=== PATIENT | female | born 1945 | race Two or more races ===

== ENCOUNTER 2024-12-29 15:55 | Inpatient (IN) | payer OTHER ==
[~2024-12-29] VITALS: Ht 157.5 cm; Wt 55.0 kg
[~2024-12-29 15:55] MED LIST: AMLO1TAB23 PO; ATOR40TA52 PO; CLOP75TA70 PO; HYDR25TA5 PO; ISOS1TAB28 PO; LOSA-534 PO; METO1TAB77 PO; OXYB5TAB14 PO; POTA-211 PO; VALS1TAB58 PO
--- NOTE | 2024-12-29 16:18 | ED.PDOC ---
History of Present Illness HPI Comments 79F BIBA w/ prior Hx of AFIB, CAD, SVT, SC, CABG and 2 Coronary stents which all may be associated to the c/c of SVT. EMS report being called by the pt's family after the pt's daughter witnessed the pt's eyes rolling back, as well as having ABD pain and N/V. EMS informed us that the pt was recently shocked and admitted in the ER 2 weeks ago. Family informed the EMS that the pt was trying to use the bathroom then after went to go lay down and that is when the daughter saw the pt rolling her eyes back. PMHx of CVA and High Lipids. Denies chills, fever, /D, SOB, CP or other associated symptom's, modifiers, or recent injuries or sick contact at this time. Chief Complaint: Palpitations Time Seen by MD: 15:55 Primary Care Provider: PAMELA Solis Notes: Nurses Notes, Medications, Allergies Allergies: Coded Allergies: Lisinopril (Verified Allergy, Unknown, 12/29/24) Information Source: Emergency Med Personnel Mode of Arrival: EMS Severity: Moderate Timing: Minutes Duration: Since onset, Minutes Prehospital treatment: None Past Medical History PAST MEDICAL HISTORY: AFIB, CAD, CVA, High Lipids, SC Past Medical History (Other): SVT Surgical History: CABG Surgical History (Other): 2 coronary Stent [employer]ICE PRESIDENT History: No Pertinent E[employer]MENT SERVICES [employer]ICE PRESIDENT History Family History Family History: Reviewed,noncontributory to illness, Unknown Social History Smoker: Non-Smoker Alcohol: Denies ETOH Use Drugs: Denies Drug Use Lives In: Home Constitutional: denies: chills, diaphoresis, fatigue, fever, malaise, sweats, weakness, others EENTM: denies: blurred vision, double vision, ear bleeding, ear discharge, ear drainage, ear pain, ear ringing, eye pain, eye redness, hearing loss, mouth pain, mouth swelling, nasal discharge, nose bleeding, nose congestion, nose pain, photophobia, tearing, throat pain, throat swelling, voice changes, others Respiratory: denies: cough, hemoptysis, orthopnea, SOB at rest, shortness of breath, SOB with excertion, stridor, wheezing, others Cardiovascular: denies: chest pain, dizzy spells, diaphoresis, Dyspnea on exertion, edema, irregular heart beat, left arm pain, lightheadedness, palpitations, PND, syncope, others Gastrointestinal: reports: abdominal pain, nausea, vomiting; denies: abdomen distended, blood streaked bowels, constipated, diarrhea, dysphagia, difficulty swallowing, hematemesis, melena, poor appetite, poor fluid intake, rectal bleeding, rectal pain, others Genitourinary: denies: abnormal vagina bleeding, burning, dyspareunia, dysuria, flank pain, frequency, hematuria, incontinence, pain, , vagina disc harge, urgency, others Neurological: denies: dizziness, fainting, headache, left sided numbness, left sided weakness, numbness, paresthesia, pre-existing deficit, right sided numbness, right sided weakness, seizure, speech problems, tingling, tremors, weakness, others Musculoskeletal: denies: back pain, gout, joint pain, joint swelling, muscle pain, muscle stiffness, neck pain, others Integumetry: denies: bruises, change in color, change in hair/nails, dryness, laceration, lesions, lumps, rash, wounds, others Allergic/Immunocompromised: denies: Difficulty Healing, Frequent Infections, Hives, Itching, others Hematologic/Lymphatic: denies: anemia, blood clots, easy bleeding, easy bruising, swollen glands, others Endocrine: denies: excessive hunger, excessive sweating, excessive thirst, excessive urination, flushing, intolerance to cold, intolerance to heat, unexplained weight gain, unexplained weight loss, others Psychiatric: denies: anxiety, bipolar disorder, depression, hopeless, panic disorder, schizophrenia, sleepless, suicidal, others All Other Systems: Reviewed and Negative Physical Exam General Appearance: No Apparent Distress, Normal HEENT: Normal ENT Inspection, Pharynx Normal, TMs Normal Neck: Full Range of Motion, Non-Tender, Normal, Normal Inspection Respiratory: Chest Non-Tender, Lungs Clear, No Accessory Muscle Use, No Respiratory Distress, Normal Breath Sounds Cardiovascular: No Edema, No JVD, No Murmur, No Gallop, Normal Peripheral Pulses, Regular Rate/Rhythm Breast Exam: Deferred Gastrointestinal: Diffuse, No Organomegaly, No Pulsatile Mass, Normal Bowel Sounds, Soft, Tenderness Genitalia: Deferred Pelvic: Deferred Rectal: Deferred Extremities: No calf tenderness, Normal capillary refill, Normal inspection, Normal range of motion, Non-tender, No pedal edema Musculoskeletal : Apperance: Normal Neurologic: Alert, plastic finisher II-XII nml as Tested, No Motor Deficits, Normal Affect, Normal Mood, No Sensory Deficits Cerebellar Function: Normal Reflexes: Normal Skin: Dry, Normal Color, Warm Lymphatic: No Adenopathy Was a procedure done? Was a procedure done?: No Differential Dx Considerations may include: svt, afib with RVR, acs, colitis, perforated viscus, sbo, ischemic bowel, cystitis, constipation, ileus X-Ray, Labs, Meds, VS Vital Signs Date Time Temp Pulse Resp B/P (MAP) Pulse Ox O2 Delivery O2 Flow Rate FiO2 12/29/24 17:52 72 20 149/75 (99) 97 12/29/24 16:47 88 18 98 Room Air* 0 21 12/29/24 16:41 74 12/29/24 16:13 71 12/29/24 16:03 74 12/29/24 16:03 98.3 74 20 166/90 (115) 96 98.3 12/29/24 16:03 98.3 74 20 166/90 (115) 96 12/29/24 16:02 75 Lab Test 12/29/24 18:09 12/29/24 16:23 Range/Units Troponin I High Sensitivity 118 *H 40 *H </=34 ng/L White Blood Count 11.3 H 4.4-10.8 10^3/uL Red Blood Count 4.82 4.0-5.20 10^6/uL Hemoglobin 14.4 12.2-16.2 g/dL Hematocrit 43.4 36.0-46.0 % Mean Corpuscular Volume 90.1 80.0-100.0 fL Mean Corpuscular Hemoglobin 29.9 28.0-32.0 pg Mean Corpuscular Hemoglobin Concent 33.2 32.0-36.0 g/dL Red Cell Distribution Width 14.3 11.8-14.3 % Platelet Count 196 140-450 10^3/uL Mean Platelet Volume 8.9 6.9-10.8 fL Neutrophils (%) (Auto) 72.0 37.0-80.0 % Lymphocytes (%) (Auto) 21.1 10.0-50.0 % Monocytes (%) (Auto) 5.8 0.0-12.0 % Eosinophils (%) (Auto) 0.6 0.0-7.0 % Basophils (%) (Auto) 0.5 0.0-2.0 % Neutrophils # (Auto) 8.1 1.6-8.6 10 ^3/uL Lymphocytes # (Auto) 2.4 0.4-5.4 10 ^3/uL Monocytes # (Auto) 0.7 0-1.3 10 ^3/uL Eosinophils # (Auto) 0.1 0-0.8 10 ^3/uL Basophils # (Auto) 0.1 0-0.2 10 ^3/uL Nucleated Red Blood Cells 0.0 % Sodium Level 140 136-145 mmol/L Potassium Level 3.2 L 3.5-5.1 mmol/L Chloride Level 107 98-107 mmol/L Carbon Dioxide Level 24 20-31 mmol/L Anion Gap 9 5-15 Blood Urea Nitrogen 19 9-23 mg/dL Creatinine 0.96 0.550-1.02 mg/dL Glomerular Filtration Rate Calc 61 >90 mL/min BUN/Creatinine Ratio 19.8 10.0-20.0 Serum Glucose 171 H 74-106 mg/dL Calcium Level 9.8 8.7-10.4 mg/dL Magnesium Level 1.9 1.6-2.6 mg/dL Total Bilirubin 0.3 0.2-1.0 mg/dL Aspartate Amino Transferase (AST) 25 13-40 U/L Alanine Aminotransferase (ALT) 24 7-40 U/L Alkaline Phosphatase 95 46-116 U/L Total Protein 7.1 5.7-8.2 g/dL Albumin 4.5 3.2-4.8 g/dL Thyroid Stimulating Hormone (TSH) 3.64 0.55-4.78 uIU/mL Free Thyroxine (T4) Calculated Pending Current Medications Medications (Trade) Dose Ordered Sig/Waldemar Route Start Time Stop Time Status Last Admin Aspirin 325 mg ONCE ONCE PO 12/29/24 16:15 12/29/24 16:16 DC 12/29/24 16:24 Potassium Chloride (Klor-Con Tablet) 40 meq ONCE ONCE PO 12/29/24 17:45 12/29/24 17:46 DC 12/29/24 17:49 Lactulose 15 ml ONCE ONCE PO 12/29/24 18:45 12/29/24 18:49 DC 12/29/24 18:57 Ceftriaxone Sodium 50 ml @ 100 mls/hr ONCE ONCE IV 12/29/24 18:45 12/29/24 19:14 12/29/24 18:57 Metronidazole 100 ml @ 100 mls/hr ONCE ONCE IV 12/29/24 18:45 12/29/24 19:44 12/29/24 18:56 Time of 1ST Reevaluation: 16:25 Reevaluation 1ST: Unchanged Time of 2ND Reevaluation: 18:48 Reevaluation 2ND: Improved Patient Education/Counseling: Diagnosis, Treatment, Prognosis, Need For Follow Up Family Education/Counseling: Diagnosis, Treatment, Prognosis, Need For Follow Up Additional Information - I reviewed the following notes from patient's past medical encounters:11/27/23 - The following tests were ordered, and results were reviewed by me: EKG, XY, ct and LABS - Additional information was gathered from interviewing the following independent Historian: EMT - I reviewed and agreed with the following test results read by other provider: X-ray, ct abdomen/pelvis - I discussed treatments and results with medical personnel and: (consultants, family) pt was attempting to have a BM from severe constipation when she suffered a near syncopal event with svt. pt was shocked and converted. the workup shows she has elevated troponin, which may be related to the tachyarrhythmia and shock. however, her troponin increased significantly on the repeat draw, which makes AMI a real concern. in addition, pt also has stercoral colitis . pt will need to be admitted for further treatments. I consulted Dr Dominguez, [facility], who agrees to have pt admitted at our facility for the above conditions #[id number] Departure 1 Departure Time of Disposition: 18:53 Impression: Primary Impression: Near syncope Additional Impressions: SVT (supraventricular tachycardia) Abdominal pain Qualified Codes: R10.84 - Generalized abdominal pain Stercoral colitis Constipation Qualified Codes: K59.01 - Slow transit constipation Non-STEMI (non-ST elevated myocardial infarction) Disposition: 09 ADMITTED INPATIENT Admit to: ICU Condition: Serious Discharged With: Self Critical Care Note Critical Care Time?: Yes (55 min-critical care time only) Critical care comment: due to concerns for deterioration of patient's condition, the care required my highest level of attention and readiness. i assessed the patient's condition, revieweed relavent documents, communicated with medical personnel, ordered the proper tests and treatments, reassed fro results and response to treatments, spoke to family and consultants and formulated a plan of care Stability Stability form required: No I personally scribed [facility]ONG [facility] on 12/29/24 at 16:18. Electronically submitted by Herb Cano ([email or web address]). I personally scribed for MAGO TONG MD ([email or web address]) on 12/29/24 at 17:22. Electronically submitted by Herb Cano ([email or web address]). MAGO TONG MD Dec 29, 2024 16:18
[2024-12-29] MEDS: ASPirin 325 MG TAB PO ONE (16:24)
--- NOTE | 2024-12-29 16:33 | DVH ---
CHEST RADIOGRAPH Indication: svt Technique: Single frontal view of the chest was obtained COMPARISON: XY CHEST PORTABLE on DOS: 11/27/23 FINDINGS: Lines and Tubes: Median sternotomy Lungs: Clear Pleura: No effusion. No pneumothorax. Cardiomediastinal contours: Unremarkable Bones: Unremarkable IMPRESSION: No acute disease.
[2024-12-29 16:37] LABS: Basophils # (auto) 0.1 10 ^3/uL (0-0.2); Basophils % (auto) 0.5 % (0.0-2.0); Eosinophils # (auto) 0.1 10 ^3/uL (0-0.8); Eosinophils % (auto) 0.6 % (0.0-7.0); Hematocrit 43.4 % (36.0-46.0); Hemoglobin 14.4 g/dL (12.2-16.2); Lymphocytes # (auto) 2.4 10 ^3/uL (0.4-5.4); Lymphocytes % (auto) 21.1 % (10.0-50.0); Mean Corpuscular Hemoglobin 29.9 pg (28.0-32.0); Mean Corpuscular Hgb Conc. 33.2 g/dL (32.0-36.0); Mean Corpuscular Volume 90.1 fL (80.0-100.0); Monocytes # (auto) 0.7 10 ^3/uL (0-1.3); Monocytes % (auto) 5.8 % (0.0-12.0); Neutrophils # (auto) 8.1 10 ^3/uL (1.6-8.6); Platelet Count (auto) 196 10^3/uL (140-450); Red Blood Cells 4.82 10^6/uL (4.0-5.20); Red Cell Distribution Width 14.3 % (11.8-14.3); White Blood Cell 11.3 10^3/uL (4.4-10.8)
[2024-12-29 16:47] VITALS: PULSE 88; RESP 18; O2SAT 98
[2024-12-29 16:53] LABS: Alanine Aminotransferase 24 U/L (7-40); Albumin 4.5 g/dL (3.2-4.8); Alkaline Phosphatase 95 U/L (46-116); Anion Gap 9 (5-15); Aspartate Aminotransferase 25 U/L (13-40); BUN/Creatinine Ratio 19.8 (10.0-20.0); Blood Urea Nitrogen 19 mg/dL (9-23); Calcium 9.8 mg/dL (8.7-10.4); Carbon Dioxide 24 mmol/L (20-31); Chloride 107 mmol/L (98-107); Magnesium 1.9 mg/dL (1.6-2.6); Sodium 140 mmol/L (136-145)
[2024-12-29 16:54] LABS: Bilirubin, Total 0.3 mg/dL (0.2-1.0); Total Protein 7.1 g/dL (5.7-8.2)
[2024-12-29 17:02] LABS: Glucose 171 mg/dL (74-106); Potassium 3.2 mmol/L (3.5-5.1)
[2024-12-29] MEDS: POTASSIUM CHL 20 Meq TABLET PO ONE (17:49)
--- NOTE | 2024-12-29 18:36 | DVH ---
Procedure: CT CT AB PEL WO CON-NO ORAL OR IV 12/29/2024 05:42 PM Indication: abdominal pain Comparison Study: None Technique: Axial images were obtained and reformatted in coronal and sagittal planes. All CT scans at this medical facility are performed using dose modulation techniques as appropriate t o a performed exam including the following: Automated exposure control was utilized; adjustment of th e MA and/or KV according to patient size; and use of iterative reconstruction technique. CT Dose: CTDI volume is 6.82 mGy. Dose-length product is 332.98 mGy*cm FINDINGS: Lower Chest: Bibasilar subsegmental atelectasis is noted. Hepatobiliary: Few subcentimeter calcified granulomas are seen in the liver. Spleen: Unremarkable. Pancreas: Unremarkable. Adrenal Glands: Unremarkable. tract: The kidneys are normal in size bilaterally without hydronephrosis or nephrolithiasis. The urinary bladder is unremarkable. GI tract: The stomach is grossly normal in appearance. No evidence of small bowel obstruction. No sig nificant colonic diverticular disease. Moderate fecal retention noted in the rectum mild circumferent ial mural thickening and moderate presacral edema The appendix is normal. Lymphatics: No mesenteric, retroperitoneal or periportal lymphadenopathy. Vasculature: The abdominal aorta is normal in caliber. Diffuse calcified plaque formation is noted. H eavy atherosclerotic calcification of the SMA noted. Pelvic Organs: Unremarkable Bones/soft tissues: No acute abnormality. Degenerative changes of the lumbar spine noted. Small fat-c ontaining umbilical hernia. Severe narrowing irregularity of of the endplates at L4-5 noted. Other: None. IMPRESSION: 1. Moderate rectal fecal impaction with findings suggestive of stercoral colitis with moderate associ ated presacral edema. 2. Diffuse atherosclerotic disease with heavy atherosclerotic calcification of the SMA. 3. Severe reduction of L4-L5 disc height with irregularity of the endplates at could be degenerative in nature or sequela of infection (discitis / osteomyelitis). Recommend clinical and biochemical ganesh elation. Further evaluation with MRI without and with IV contrast could be completed if active infect ion is suspected.
--- NOTE | 2024-12-29 18:49 | ECG ---
[facility] Test Date: 2024-12-29 Test Time: 16:41:44 Pat Name: MONICA LAZAR Department: ER Room: Gender: F Makeup Artist: DECK WORKER : 1945 Requested By: MAGO TONG Order Number: [id number] Reading MD: Ish Calderón Measurements Intervals Palmer Rate: 74 P: 53 DE: 138 QRS: 70 QRSD: 97 T: 100 QT: 457 QTc: 507 Interpretive Statements Sinus rhythm Probable LVH with secondary repol abnrm Prolonged QT interval Electronically Signed On 12-29-2024 20:00:06 PST by Ish Calderón Please click the below link to view image of tracing.
[2024-12-29] MEDS: metroNIDAZOLE 500MG/100ML 100 ML IV ONE (18:56)
[2024-12-29] MEDS: LACTULOSE 20Gm/30ML SOLN PO ONE (18:57)
[2024-12-29] MEDS: cefTRIAXone 1GM/50ML D5W 50 ML IV ONE (18:57)
[2024-12-29 19:48] VITALS: PULSE 87; RESP 19; O2SAT 98
[2024-12-29] MEDS ORDERED: hydrALAZINE HCL 20 MG/ML VL IV PRN (20:15)
[2024-12-29] MEDS ORDERED: ONDANSETRON HCL 4 MG/2 ML VIAL IV PRN (20:15)
[2024-12-29] MEDS ORDERED: ACETAMINOPHEN 325 MG TAB PO PRN (20:15)
[2024-12-29] MEDS ORDERED: DOCUSATE SOD 100 MG CAP PO PRN (20:15)
[2024-12-29] MEDS ORDERED: HYDROcodone-ACET 5/325MG TAB PO PRN (20:15)
--- NOTE | 2024-12-29 21:37 | DVHHP2 ---
History of Present Illness Reason for Visit: Palpitations History of Present Illness The patient is a 79-year-old female with past medical history of OR, SVT, AFib, Coronary artery disease, and CVA who presented to [facility] ED with complaint of palpitations. Patient reports she has been having palpitations, fainting, abdominal pain, associated nausea, vomiting, getting worse that prompted this visit. As reported EMS, patient was recently shocked and admitted in the 2 weeks ago. Patient was seen and evaluated in the ED, laboratory data shows WBC 11.3, platelets 196, sodium 140, potassium 3.2, BUN 19, creatinine 0.96, GFR 61, glucose 171, TSH 3.64, troponin 118, blood pressure 142/81, heart rate 87, temperature 98.1 F, O2 saturation 98% on room air. Chest x-ray show no acute disease, CT of the abdomen/pelvis revealing moderate rectal fecal impaction and findings suggestive of stercoral colitis with moderate associated presacral edema. Patient was started on IV antibiotic regimen Flagyl, given aspirin 325 mg p.o. x1, please see medication orders section in the computer. On my assessment, patient denies chest pain, no headache, no dizziness, no diaphoresis, no shortness of breaths, no abdominal pain, nausea, vomiting at this moment, no fever, no chills. Patient was admitted for further evaluation and medical management. Past Medical History AFIB, CAD, CVA, High Lipids, OR, SVT Past Surgical History CABG, 2 coronary Stent Family History Reviewed, noncontributory to the management of this case. Past Social History The patient lives at home, denies smoking, alcohol or illicit drugs abuse. Review of Systems Constitutional: No: Fever, Chills, Sweats, Weakness, Malaise, Other Eyes: No: Pain, Vision change, Conjunctivae inflammation, Eyelid inflammation, Other, Redness ENT: No: Ear pain, Ear discharge, Nose pain, Nose discharge, Nose congestion, Mouth pain, Mouth swelling, Throat pain, Throat swelling, Other Respiratory: No: Cough, Dry, Shortness of breath, SOB with excertion, Wheezing, Hemoptysis, Pleuritic Pain, Sputum, Wheezing, Other Cardiovascular: Palpitations; No: Chest Pain, Orthopnea, Paroxysmal Noc. Dyspnea, Edema, Lt Headedness, Other Gastrointestinal: Nausea, Vomiting, Abdominal Pain; No: Diarrhea, Constipation, Melena, Hematochezia, Other Genitourinary: No Dysuria, No Frequency, No Incontinence, No Hematuria, No Retention, No Other Musculoskeletal: No: other, neck pain, shoulder pain, arm pain, back pain, hand pain, leg pain, foot pain Skin: No: Rash, Lesions, Jaundice, Bruising, Other Neurological: No: Weakness, Numbness, Incoordination, Change in speech, Confusion, Seizures, Other Allergies: Coded Allergies: Lisinopril (Verified Allergy, Unknown, 12/29/24) Medications Current Medications Medications Dose Ordered Sig/Waldemar Route Start Time Stop Time Status Last Admin Dose Admin Ceftriaxone Sodium 50 ml @ 100 mls/hr DAILY@09 IV 12/30/24 09:00 UNV Metronidazole 100 ml @ 100 mls/hr Q8HR IV 12/29/24 22:00 UNV Clopidogrel Bisulfate 75 mg DAILY PO 12/30/24 10:00 UNV Carvedilol 12.5 mg Q12HR PO 12/29/24 22:00 UNV Amlodipine Besylate 10 mg DAILY PO 12/30/24 10:00 UNV Hydralazine HCl 10 mg Q6HP PRN IV 12/29/24 20:15 UNV Aspirin 81 mg DAILY PO 12/30/24 10:00 UNV Atorvastatin Calcium 20 mg HS PO 12/29/24 22:00 UNV Acetaminophen/ Hydrocodone Bitart 1 tab Q4HP PRN PO 12/29/24 20:15 UNV Ondansetron HCl 4 mg Q4HP PRN IV 12/29/24 20:15 UNV Docusate Sodium 100 mg BIDPRN PRN PO 12/29/24 20:15 UNV Acetaminophen 650 mg Q6HP PRN PO 12/29/24 20:15 UNV Exam Vital Signs Vital Signs Date Time Temp Pulse Resp B/P (MAP) Pulse Ox O2 Delivery O2 Flow Rate FiO2 12/29/24 19:48 87 19 98 Room Air* 0 21 12/29/24 19:30 98.1 143/81 (101) 98.1 General Appearance: Alert, Oriented X3, Cooperative, No acute distress HEENT: Atraumatic, PERRLA, EOMI, Mucous membr. moist/pink Respiratory: Clear to auscultation, Normal air movement Cardiovascular: Regular rate, Normal S1, Normal S2, No murmurs Abdominal: Normal bowel sounds, Soft, No tenderness, No hepatospenomegaly, No masses Extremities: No clubbing, No cyanosis, No edema, Normal pulses, No tenderness/swelling Skin: No rashes, No breakdown, No significant lesion Neuro: Normal gait, Normal speech, Strength at 5/5 X4 ext, Normal tone, Sensation intact, Cranial nerves 3-12 NL, Reflexes 2+ Psych/Mental Status: Mental status NL, Mood NL Labs/Xrays Labs Test 12/29/24 19:54 12/29/24 16:23 Range/Units Troponin I High Sensitivity 241 *H </=34 ng/L White Blood Count 11.3 H 4.4-10.8 10^3/uL Red Blood Count 4.82 4.0-5.20 10^6/uL Hemoglobin 14.4 12.2-16.2 g/dL Hematocrit 43.4 36.0-46.0 % Mean Corpuscular Volume 90.1 80.0-100.0 fL Mean Corpuscular Hemoglobin 29.9 28.0-32.0 pg Mean Corpuscular Hemoglobin Concent 33.2 32.0-36.0 g/dL Red Cell Distribution Width 14.3 11.8-14.3 % Platelet Count 196 140-450 10^3/uL Mean Platelet Volume 8.9 6.9-10.8 fL Neutrophils (%) (Auto) 72.0 37.0-80.0 % Lymphocytes (%) (Auto) 21.1 10.0-50.0 % Monocytes (%) (Auto) 5.8 0.0-12.0 % Eosinophils (%) (Auto) 0.6 0.0-7.0 % Basophils (%) (Auto) 0.5 0.0-2.0 % Neutrophils # (Auto) 8.1 1.6-8.6 10 ^3/uL Lymphocytes # (Auto) 2.4 0.4-5.4 10 ^3/uL Monocytes # (Auto) 0.7 0-1.3 10 ^3/uL Eosinophils # (Auto) 0.1 0-0.8 10 ^3/uL Basophils # (Auto) 0.1 0-0.2 10 ^3/uL Nucleated Red Blood Cells 0.0 % Sodium Level 140 136-145 mmol/L Potassium Level 3.2 L 3.5-5.1 mmol/L Chloride Level 107 98-107 mmol/L Carbon Dioxide Level 24 20-31 mmol/L Anion Gap 9 5-15 Blood Urea Nitrogen 19 9-23 mg/dL Creatinine 0.96 0.550-1.02 mg/dL Glomerular Filtration Rate Calc 61 >90 mL/min BUN/Creatinine Ratio 19.8 10.0-20.0 Serum Glucose 171 H 74-106 mg/dL Hemoglobin A1c 6.0 H <5.7 % A1C Calcium Level 9.8 8.7-10.4 mg/dL Magnesium Level 1.9 1.6-2.6 mg/dL Total Bilirubin 0.3 0.2-1.0 mg/dL Aspartate Amino Transferase (AST) 25 13-40 U/L Alanine Aminotransferase (ALT) 24 7-40 U/L Alkaline Phosphatase 95 46-116 U/L Total Protein 7.1 5.7-8.2 g/dL Albumin 4.5 3.2-4.8 g/dL Thyroid Stimulating Hormone (TSH) 3.64 0.55-4.78 uIU/mL PATIENT: MONICA LAZAR ACCT: [id number] UNIT: [id number] : 1945 LOC: ER ROOM / BED: / AGE / SEX: 79 / F ADM STATUS: REG ER SERVICE 1710 ORDERING PHYSICIAN: MAGO TONG MD PROCEDURE(s): ABPL - CT AB PEL WO CON-NO ORAL OR IV REASON: abdominal pain ORDER NUMBER(s): [id number], ACCESSION NUMBER(s): [id number] Procedure: CT CT AB PEL WO CON-NO ORAL OR IV 12/29/2024 05:42 PM Indication: abdominal pain Comparison Study: None Technique: Axial images were obtained and reformatted in coronal and sagittal planes. All CT scans at this medical facility are performed using dose modulation techniques as appropriate to a performed exam including the following: Automated exposure control was utilized; adjustment of the MA and/or KV according to patient size; and use of iterative reconstruction technique. CT Dose: CTDI volume is 6.82 mGy. Dose-length product is 332.98 mGy*cm FINDINGS: Lower Chest: Bibasilar subsegmental atelectasis is noted. Hepatobiliary: Few subcentimeter calcified granulomas are seen in the liver. Spleen: Unremarkable. Pancreas: Unremarkable. Adrenal Glands: Unremarkable. tract: The kidneys are normal in size bilaterally without hydronephrosis or nephrolithiasis. The urinary bladder is unremarkable. GI tract: The stomach is grossly normal in appearance. No evidence of small bowel obstruction. No significant colonic diverticular disease. Moderate fecal retention noted in the rectum mild circumferential mural thickening and moderate presacral edema The appendix is normal. Lymphatics: No mesenteric, retroperitoneal or periportal lymphadenopathy. Vasculature: The abdominal aorta is normal in caliber. Diffuse calcified plaque formation is noted. Heavy atherosclerotic calcification of the SMA noted. Pelvic Organs: Unremarkable Bones/soft tissues: No acute abnormality. Degenerative changes of the lumbar spine noted. Small fat-containing umbilical hernia. Severe narrowing irregularity of of the endplates at L4-5 noted. Other: None. IMPRESSION: 1. Moderate rectal fecal impaction with findings suggestive of stercoral colitis with moderate associated presacral edema. 2. Diffuse atherosclerotic disease with heavy atherosclerotic calcification of the SMA. 3. Severe reduction of L4-L5 disc height with irregularity of the endplates at could be degenerative in nature or sequela of infection (discitis/osteomyelitis). Recommend clinical and biochemical correlation. Further evaluation with MRI without and with IV contrast could be completed if active infection is suspected. ORDERING PHYSICIAN: MAGO TONG MD PROCEDURE(s): CXRP - CHEST PORTABLE REASON: svt ORDER NUMBER(s): [id number], ACCESSION NUMBER(s): [id number] CHEST RADIOGRAPH Indication: svt Technique: Single frontal view of the chest was obtained COMPARISON: XY CHEST PORTABLE on DOS: 11/27/23 FINDINGS: Lines and Tubes: Median sternotomy Lungs: Clear Pleura: No effusion. No pneumothorax. Cardiomediastinal contours: Unremarkable Bones: Unremarkable IMPRESSION: No acute disease. Assessment/Plan Assessment/Plan Near syncope Hypokalemia SVT (supraventricular tachycardia) Abdominal pain Generalized abdominal pain Stercoral colitis Hyperglycemia Constipation Slow transit constipation Non-STEMI (non-ST elevated myocardial infarction) Plan 1. Admit to telemetry unit 2. Breathing treatment 3. Pain control management 4. IV antibiotic management 5. Management of fluids and electrolytes 6. Consultation for Cardiology 7. Diagnostic test abdomen/pelvis CT 8. DVT prophylaxis-on aspirin 9. Repeat labs CBC, CMP in a.m. 10. Home medication reviewed and reconciled 11. Continue with current medical management 12. Treatment plan discussed with patient and RN. Patient verbalized understa nding. Plan discussed with: Patient, Other (RN) My Orders Orders - TERI REGALADO DNP Procedure Category Date Status Time Ceftriaxone 1gm/50ml PHA 12/30/24 Logged D5w (Rocephin) 09:00 Metronidazole PHA 12/29/24 Logged 500mg/100ml (Flagyl 22:00 Clopidogrel Bisulfate PHA 12/30/24 Logged (Plavix) 10:00 Carvedilol Tablet PHA 12/29/24 Logged (Coreg Tablet) 22:00 Amlodipine Tablet PHA 12/30/24 Logged (Norvasc Tablet) 10:00 Hydralazine Injection PHA 12/29/24 Logged (Apresoline Inject 20:15 Aspirin Tablet PHA 12/30/24 Logged 10:00 Atorvastatin (Lipitor) PHA 12/29/24 Logged 22:00 * Cardiology Consult CONS 12/29/24 Transmitted 20:01 Troponin-I Hs LAB 12/29/24 Logged 22:00 Troponin-I Hs LAB 12/30/24 Verified 02:00 Troponin-I Hs LAB 12/30/24 Verified 06:00 Allergies KEL 12/29/24 In Process 20:01 Code Status CODE 12/29/24 Transmitted 20:01 Oxygen Per Hour RT 12/29/24 Transmitted 20:01 Hydrocodone-Acet PHA 12/29/24 Logged 5/325mg Tab ([place] 20:15 Ondansetron Hcl PHA 12/29/24 Logged (Zofran) 20:15 Docusate Sodium PHA 12/29/24 Logged Capsule (Colace 20:15 Complete Blood Count LAB 12/30/24 Verified 04:00 Comprehensive LAB 12/30/24 Verified Metabolic Panel 04:00 Cardiac DIET 12/30/24 Transmitted Diet-2gna,Lofat,Lochol Breakfast Condition: Serious KEL 12/29/24 In Process 20:01 Acetaminophen Tablet PHA 12/29/24 Logged (Tylenol Tablet) 20:15 Bedrest With Bathroom KEL 12/29/24 In Process Privileg 20:01 Sequential KEL 12/29/24 In Process Compression Device Admit ADMIT 12/29/24 Verified 21:36 Nitroglycerin PHA 12/29/24 Verified Sublingual (Ntrostat 21:45 Morphine Sulfate [facility] 12/29/24 Verified Injection 21:45 Notify Md Of Changes [facility] 12/29/24 Verified From Base 21:36 Dental Insurance Coordinator For [facility] 12/29/24 Verified 24 Hours 21:36 Emergency Dysrhythmia [facility] 12/29/24 Verified Protocol 21:36 Rhythm Strips Once [facility] 12/29/24 Verified Every Shift 21:36 Oxygen By Nasal RT 12/29/24 Verified Cannula 21:36 Problem List: (1) Near syncope (2) Stercoral colitis (3) Abdominal pain (4) SVT (supraventricular tachycardia) (5) Constipation (6) Non-STEMI (non-ST elevated myocardial infarction) (7) Hypokalemia (8) Slow transit constipation (9) Hyperglycemia (10) Generalized abdominal pain Date of Service: Dec 29, 2024 Billing Provider: TERI REGALADO DNP Common Visit Codes: [id number] INP/OBS CARE (HIGH) TERI REGALADO DNP Dec 29, 2024 21:37
[2024-12-29] MEDS ORDERED: NITROGLYCERIN 0.4 MG SL TAB SL PRN (21:45)
[2024-12-29] MEDS ORDERED: MORPHINE SULFATE INJ 2 MG/ml SYRG IV PRN (21:45)
[2024-12-29] MEDS: CARVEDILOL 12.5 MG TAB PO SCH (23:34)
[2024-12-29] MEDS: ATORVASTATIN 20 MG TAB PO SCH (23:34)
[2024-12-30] MEDS: MELATONIN 5 MG TAB PO SCH (02:23)
[2024-12-30 03:27] LABS: Basophils # (auto) 0 10 ^3/uL (0-0.2); Basophils % (auto) 0.3 % (0.0-2.0); Eosinophils # (auto) 0.1 10 ^3/uL (0-0.8); Eosinophils % (auto) 0.5 % (0.0-7.0); Hematocrit 35.4 % (36.0-46.0); Hemoglobin 11.8 g/dL (12.2-16.2); Lymphocytes # (auto) 2.2 10 ^3/uL (0.4-5.4); Mean Corpuscular Hemoglobin 29.7 pg (28.0-32.0); Mean Corpuscular Hgb Conc. 33.3 g/dL (32.0-36.0); Mean Corpuscular Volume 89.1 fL (80.0-100.0); Monocytes # (auto) 0.8 10 ^3/uL (0-1.3); Monocytes % (auto) 5.5 % (0.0-12.0); Neutrophils # (auto) 10.7 10 ^3/uL (1.6-8.6); Neutrophils % (auto) 77.7 % (37.0-80.0); Nucleated Red Blood Cells % 0.1 %; Platelet Count (auto) 198 10^3/uL (140-450); Red Blood Cells 3.97 10^6/uL (4.0-5.20); Red Cell Distribution Width 13.9 % (11.8-14.3); White Blood Cell 13.8 10^3/uL (4.4-10.8)
[2024-12-30 03:47] LABS: Alanine Aminotransferase 20 U/L (7-40); Albumin 3.7 g/dL (3.2-4.8); Alkaline Phosphatase 78 U/L (46-116); Anion Gap 9 (5-15); Aspartate Aminotransferase 21 U/L (13-40); BUN/Creatinine Ratio 25.6 (10.0-20.0); Bilirubin, Total 0.5 mg/dL (0.2-1.0); Blood Urea Nitrogen 20 mg/dL (9-23); Calcium 9.5 mg/dL (8.7-10.4); Carbon Dioxide 24 mmol/L (20-31); Potassium 3.7 mmol/L (3.5-5.1); Sodium 140 mmol/L (136-145)
[2024-12-30 03:52] LABS: Chloride 107 mmol/L (98-107); Glucose 147 mg/dL (74-106); Total Protein 5.6 g/dL (5.7-8.2)
[2024-12-30] MEDS: metroNIDAZOLE 500MG/100ML 100 ML IV SCH (06:12)
--- NOTE | 2024-12-30 07:24 | DVHINCON2 ---
Date Seen: Dec 30, 2024 Referring Physician Zac Reason for Consultation SVT, A Fib History of Present Illness 79-year-old female with PMH for HTN, AFib, SVT, CAD s/p CABG, CVA presents to the hospital with palpitations lightheadedness abdominal pain. Patient poor historian therefore information gathered mainly from chart review. Apparently patient came in she was in AFib RVR versus SVT. No strips for review. Denies any chest pain, shortness of breath. Upon evaluation in the ER patient noted to have mildly elevated troponins trending upwards 40, 118, 241, 514, 722. Denies chest pain, chest pressure, shortness of breath, diaphoresis. CT abdomen and pelvis showed moderate rectal fecal impaction suggestive of stercoral colitis with moderate associated presacral edema. EKG reviewed and shows sinus rhythm at 74 beats per minute, inferior ST and T- wave abnormality. Past Medical History CAD CABG SVT Atrial fibrillation Past Surgical History CABG Coronary stents Family History Denies pertinent family cardiac history Social History Denies alcohol, tobacco, or illicit drug use Allergies: Coded Allergies: Lisinopril (Verified Allergy, Unknown, 12/29/24) Current Medications Current Medications Medications (Trade) Dose Ordered Sig/Waldemar Route PRN Reason Start Time Stop Time Status Last Admin Ceftriaxone Sodium 50 ml @ 100 mls/hr Q24H IV 12/30/24 21:00 Metronidazole 100 ml @ 100 mls/hr Q8HR IV 12/30/24 06:00 12/30/24 06:12 Clopidogrel Bisulfate (Plavix) 75 mg DAILY PO 12/30/24 10:00 Carvedilol (Coreg Tablet) 12.5 mg Q12HR PO 12/29/24 23:27 12/29/24 23:34 Amlodipine Besylate (Norvasc Tablet) 10 mg DAILY PO 12/30/24 10:00 Hydralazine HCl (Apresoline Injection) 10 mg Q6HP PRN IV SBP>150 12/29/24 20:15 Aspirin 81 mg DAILY PO 12/30/24 10:00 Atorvastatin Calcium (Lipitor) 20 mg HS PO 12/29/24 23:27 12/29/24 23:34 Acetaminophen/ Hydrocodone Bitart (Tiffin 5/325MG Tab) 1 tab Q4HP PRN PO MODERATE PAIN (4-6 PAIN SCALE) 12/29/24 20:15 Ondansetron HCl (Zofran) 4 mg Q4HP PRN IV NAUSEA / VOMITING 12/29/24 20:15 Docusate Sodium (Colace Capsule) 100 mg BIDPRN PRN PO FOR CONSTIPATION 12/29/24 20:15 Acetaminophen (Tylenol Tablet) 650 mg Q6HP PRN PO PAIN SCALE 1-3 OR TEMP>100.4 12/29/24 20:15 Nitroglycerin (Ntrostat Sublingual) 0.4 mg Q5MINP PRN SL FOR CHEST PAIN 12/29/24 21:45 Morphine Sulfate 2 mg Q30M PRN IV FOR CHEST PAIN 12/29/24 21:45 Melatonin (Melatonin) 5 mg HS PO 12/30/24 02:00 12/30/24 02:23 Review of Systems Constitutional: No: Fever, Chills, Sweats, Weakness, Malaise, Other Eyes: No: Pain, Vision change, Conjunctivae inflammation, Eyelid inflammation, Other, Redness ENT: No: Ear pain, Ear discharge, Nose pain, Nose discharge, Nose congestion, Mouth pain, Mouth swelling, Throat pain, Throat swelling, Other Respiratory: No: Cough, Dry, Shortness of breath, SOB with exertion, Wheezing, Hemoptysis, Pleuritic Pain, Sputum, Wheezing, Other Cardiovascular: ; No: Chest Pain Orthopnea, Paroxysmal Noc. Dyspnea, Edema, Lt Headedness, Other positive: Palpitations, Gastrointestinal: No: Nausea, Vomiting, , Diarrhea, , Melena, Hematochezia, Other positive: Abdominal Pain, Constipation Genitourinary: No Dysuria, No Frequency, No Incontinence, No Hematuria, No Retention, No Other Musculoskeletal: neck pain; No: other, shoulder pain, arm pain, back pain, hand pain, leg pain, foot pain Skin: No: Rash, Lesions, Jaundice, Bruising, Other Neurological: Other (Dizziness, headache.); No: Weakness, Numbness, Incoordination, Change in speech, Confusion, Seizures Vital Signs Vital Signs Date Time Temp Pulse Resp B/P (MAP) Pulse Ox O2 Delivery O2 Flow Rate FiO2 12/30/24 05:00 98.0 81 17 122/57 (78) 98 98.0 12/29/24 19:48 Room Air* 0 21 Physical Exam General appearance: Patient is well-developed, well-nourished, in no acute distress. HEENT: Exam shows: Normocephalic, atraumatic, PERRLA, EOMI Neck: Supple, no bruits Chest: Equal chest excursion bilaterally. Breath sounds normal-no rales or wh eezes. Heart: Rhythm: Regular rate; no murmur or gallop Abdomen: Exam shows: Soft, nontender, nondistended Musculoskeletal: No clubbing, no cyanosis, no lower extremity edema Dermatology: Skin warm, moist. Neurological: Exam shows: Alert and oriented x3-4, normal speech Available prior records, labs, EKG, rhythm strips reviewed and interpreted Labs/Diagnostic Data Labs Test 12/30/24 06:59 12/30/24 03:01 12/29/24 16:23 Range/Units White Blood Count 13.8 H 4.4-10.8 10^3/uL Red Blood Count 3.97 L 4.0-5.20 10^6/uL Hemoglobin 11.8 #L 12.2-16.2 g/dL Hematocrit 35.4 #L 36.0-46.0 % Mean Corpuscular Volume 89.1 80.0-100.0 fL Mean Corpuscular Hemoglobin 29.7 28.0-32.0 pg Mean Corpuscular Hemoglobin Concent 33.3 32.0-36.0 g/dL Red Cell Distribution Width 13.9 11.8-14.3 % Platelet Count 198 140-450 10^3/uL Mean Platelet Volume 9.0 6.9-10.8 fL Neutrophils (%) (Auto) 77.7 37.0-80.0 % Lymphocytes (%) (Auto) 16.0 10.0-50.0 % Monocytes (%) (Auto) 5.5 0.0-12.0 % Eosinophils (%) (Auto) 0.5 0.0-7.0 % Basophils (%) (Auto) 0.3 0.0-2.0 % Neutrophils # (Auto) 10.7 H 1.6-8.6 10 ^3/uL Lymphocytes # (Auto) 2.2 0.4-5.4 10 ^3/uL Monocytes # (Auto) 0.8 0-1.3 10 ^3/uL Eosinophils # (Auto) 0.1 0-0.8 10 ^3/uL Basophils # (Auto) 0 0-0.2 10 ^3/uL Nucleated Red Blood Cells 0.1 % Sodium Level 140 136-145 mmol/L Potassium Level 3.7 3.5-5.1 mmol/L Chloride Level 107 98-107 mmol/L Carbon Dioxide Level 24 20-31 mmol/L Anion Gap 9 5-15 Blood Urea Nitrogen 20 9-23 mg/dL Creatinine 0.78 0.550-1.02 mg/dL Glomerular Filtration Rate Calc 78 >90 mL/min BUN/Creatinine Ratio 25.6 H 10.0-20.0 Serum Glucose 147 H 74-106 mg/dL Calcium Level 9.5 8.7-10.4 mg/dL Total Bilirubin 0.5 0.2-1.0 mg/dL Aspartate Amino Transferase (AST) 21 13-40 U/L Alanine Aminotransferase (ALT) 20 7-40 U/L Alkaline Phosphatase 78 46-116 U/L Total Protein 5.6 L 5.7-8.2 g/dL Albumin 3.7 3.2-4.8 g/dL Hemoglobin A1c 6.0 H <5.7 % A1C Magnesium Level 1.9 1.6-2.6 mg/dL Thyroid Stimulating Hormone (TSH) 3.64 0.55-4.78 uIU/mL Assessment NSTEMI Atrial fibrillation with episodes of RVR Near-syncope HX SVT CAD CABG PCI stent x2 CVA HTN HLD Stercoral colitis Plan/Recommendation * Continue aspirin , statin, and Plavix. Denies chest pain. Likely type 2 PR. Continue trending troponins. Follow up echo. * Currently sinus rhythm, Continue on Coreg, patient not on anticoagulation therapy for AFib. * BP stable on current regimen continue trending. Case Discussed with Dr Montague. Currently sinus rhythm. Continue monitoring. Follow up echo. Critical care, time spent: 40 minutes This medical document was created using an electronic medical record system with voice recognition software and computerized dictation system. Although this document has been carefully reviewed, there might still be some phonetic and typographical errors. Occasional wrong-word or ``sound-alike substitutions may have occurred due to the inherent limitations of voice recognition software. These areas are purely typographical due to imperfections of the software programs and do not reflect any compromise in the patient's medical care. Please read the chart carefully and recognize, using context, where these substitutions have occurred. Thank you for allowing me to participate in the management of this patient. The treatment plan was discussed with and agreed upon by patient/family including requesting consultants and ordering of imaging/procedures. Plan discussed with: Patient NYHA 2 Physical activity limitations: NA Date of Service: Dec 30, 2024 Billing Provider: DYLLAN OATES Cardiology Common Codes: [id number] INP/OBS CARE (High), [id number] CARE 30-74 MIN DYLLAN OATES Dec 30, 2024 07:24
[2024-12-30 08:05] VITALS: PULSE 57; RESP 12; O2SAT 100
[2024-12-30] MEDS: CLOPIDOGREL BISULFATE 75 MG TAB PO SCH (10:37)
[2024-12-30] MEDS: ASPirin 81 mg TAB PO SCH (10:37)
[2024-12-30] MEDS: amLODIPine BESYLATE 5 MG TAB PO SCH (10:38)
[2024-12-30 18:53] VITALS: BP 144/67; PULSE 55; RESP 19; TEMP 98.7; O2SAT 98
[2024-12-30 20:00] VITALS: PULSE 61
[2024-12-30 21:00] VITALS: BP 139/169; PULSE 66; RESP 18; TEMP 97.8; O2SAT 97
--- NOTE | 2024-12-30 21:33 | DVHPN2 ---
Subjective The patient is seen and examined at bedside. No syncopal episode. Reviewed: Care Plan, H&P, Labs, Medications, Previous Orders, Radiology Changes from previous H/P or p: No Changes Eyes: No Pain, No Vision change, No Conjunctivae inflammation, No Eyelid inflammation, No Other, No Redness ENT: No Ear pain, No Ear discharge, No Nose pain, No Nose discharge, No Nose congestion, No Mouth pain, No Mouth swelling, No Throat pain, No Throat swelling, No Other Cardiovascular: No Chest Pain; Palpitations; No Orthopnea, No Paroxysmal Noc. Dyspnea, No Edema, No Lt Headedness, No Other Respiratory: No Cough, No Dry, No Shortness of breath, No SOB with excertion, No Wheezing, No Hemoptysis, No Pleuritic Pain, No Sputum, No Other Gastrointestinal: Nausea, Vomiting, Abdominal Pain; No Diarrhea, No Constipation, No Melena, No Hematochezia, No Other Genitourinary: No Dysuria, No Frequency, No Incontinence, No Hematuria, No Retention, No Other Musculoskeletal: No other, No neck pain, No shoulder pain, No arm pain, No back pain, No hand pain, No leg pain, No foot pain Skin: No Rash, No Lesions, No Jaundice, No Bruising, No Other Objective Vitals Vital Signs Date Time Temp Pulse Resp B/P (MAP) Pulse Ox O2 Delivery O2 Flow Rate FiO2 12/30/24 21:10 63 142/66 12/30/24 21:00 97.8 18 97 97.8 12/30/24 08:05 Room Air* 0 21 Intake/Output Intake and Output 12/30/24 07:00 Intake Total 600 ml Balance 600 ml Intake Oral 450 ml IV Total 150 ml # Voids 6 # Bowel Movements 6 General Appearance: Alert, Oriented X3, Cooperative, No acute distress HEENT: Atraumatic, PERRLA, EOMI, Mucous membr. moist/pink Neck: Supple Lungs: Clear to auscultation, Normal air movement Cardiovascular: Regular rate, Normal S1, Normal S2, No murmurs, Gallops, Rubs Abdomen: Normal bowel sounds, Soft, No tenderness, No hepatospenomegaly Neuro: Cranial nerves 3-12 NL Psych/Mental Status: Mental status NL Medications Current Medications Medications Dose Ordered Sig/Waldemar Route Start Time Stop Time Status Last Admin Dose Admin Ceftriaxone Sodium 50 ml @ 100 mls/hr Q24H IV 12/30/24 21:00 Metronidazole 100 ml @ 100 mls/hr Q8HR IV 12/30/24 06:00 12/30/24 15:12 100 MLS/HR Clopidogrel Bisulfate 75 mg DAILY PO 12/30/24 10:00 12/30/24 10:37 75 MG Carvedilol 12.5 mg Q12HR PO 12/29/24 23:27 12/30/24 21:10 12.5 MG Amlodipine Besylate 10 mg DAILY PO 12/30/24 10:00 12/30/24 10:38 10 MG Hydralazine HCl 10 mg Q6HP PRN IV 12/29/24 20:15 Aspirin 81 mg DAILY PO 12/30/24 10:00 12/30/24 10:37 81 MG Atorvastatin Calcium 20 mg HS PO 12/29/24 23:27 12/30/24 21:05 20 MG Acetaminophen/ Hydrocodone Bitart 1 tab Q4HP PRN PO 12/29/24 20:15 Ondansetron HCl 4 mg Q4HP PRN IV 12/29/24 20:15 Docusate Sodium 100 mg BIDPRN PRN PO 12/29/24 20:15 Acetaminophen 650 mg Q6HP PRN PO 12/29/24 20:15 Nitroglycerin 0.4 mg Q5MINP PRN SL 12/29/24 21:45 Morphine Sulfate 2 mg Q30M PRN IV 12/29/24 21:45 Melatonin 5 mg HS PO 12/30/24 02:00 12/30/24 21:05 5 MG Laboratory Results Laboratory Tests 12/30/24 03:01 Chemistry Test 12/30/24 03:01 Albumin 3.7 g/dL (3.2-4.8) Calcium Level 9.5 mg/dL (8.7-10.4) Total Protein 5.6 g/dL (5.7-8.2) L LFT Test 12/30/24 03:01 Alanine Aminotransferase (ALT) 20 U/L (7-40) Alkaline Phosphatase 78 U/L (46-116) Aspartate Amino Transferase (AST) 21 U/L (13-40) Total Bilirubin 0.5 mg/dL (0.2-1.0) Labs and/or images reviewed: Labs reviewed by me Assessment/Plan Assessment/Plan Assessment/Plan Near syncope Hypokalemia SVT (supraventricular tachycardia) Generalized abdominal pain Stercoral colitis Hyperglycemia Constipation Slow transit constipation Non-STEMI (non-ST elevated myocardial infarction) Continuing current management. Waiting for postmaster to see the patient. Replace electrolytes as needed. Continuing antibiotic. This medical document was created using an electronic medical record system with [employer] direct computerized dictation system. Although this document has been carefully reviewed, there may still be some phonetic and typographical errors. These areas are purely typographical due to imperfections of the software programs, and do not reflect any compromise in the patient's medical care. Plan discussed with: Patient Date of Service: Dec 30, 2024 Billing Provider: CHIQUI SALINAS MD Common Visit Codes: [id number] INP/OBS CARE(HIGH) CHIQUI SALINAS MD Dec 30, 2024 21:33
[2024-12-30] MEDS: cefTRIAXone 1GM/50ML D5W 50 ML IV SCH (21:40)
--- NOTE | 2024-12-30 22:59 | DVHINCON2 ---
Date Seen: Dec 30, 2024 Referring Physician Zac Reason for Consultation SVT, A Fib History of Present Illness This is a 79-year-old female with PMH of HTN, AFib, SVT, CAD s/p CABG, CVA presents to the ED with complaints of palpitations lightheadedness abdominal pain. Patient poor historian therefore information gathered mainly from chart review. Apparently patient came in she was in AFib RVR versus SVT. No strips for review. Denies any chest pain, shortness of breath. Patient noted to have mildly elevated troponins trending upwards 40, 118, 241, 514, 722. Denies chest pain, chest pressure, shortness of breath, diaphoresis. CT abdomen and pelvis showed moderate rectal fecal impaction suggestive of stercoral colitis with moderate associated presacral edema. EKG reviewed and shows sinus rhythm at 74 beats per minute, inferior ST and T-wave abnormality. Past Medical History CAD CABG SVT Atrial fibrillation Past Surgical History CABG Coronary stents Allergies: Coded Allergies: Lisinopril (Verified Allergy, Unknown, 12/29/24) Home Meds Reported Medications Hctz (Hydrochlorothiazide) 25 Mg Tab, 1 DAILY 12/30/24 Amlodipine Besylate (Amlodipine Besylate) 10 Mg Tab, 1 DAILY 12/30/24 Losartan Potassium (Losartan Potassium) 50 Mg Tab, 1 DAILY 12/30/24 Isosorbide Mononitrate (Isosorbide Mononitrate Er) 30 Mg Tab, 1 DAILY 12/30/24 Potassium Chloride (Klor-Con 10) 10 Meq Tab 12/30/24 Oxybutynin Chloride (Oxybutynin Chloride) 5 Mg Tab 12/30/24 Clopidogrel Bisulfate (CLOPIDOGREL) 75 Mg Tab, 1 DAILY 12/30/24 Atorvastatin Calcium (ATORVASTATIN CALCIUM) 40 Mg Tab 12/30/24 Valsartan (Valsartan) 160 Mg Tab, 1 DAILY 12/30/24 Current Medications Current Medications Medications (Trade) Dose Ordered Sig/Waldemar Route PRN Reason Start Time Stop Time Status Last Admin Ceftriaxone Sodium 50 ml @ 100 mls/hr Q24H IV 12/30/24 21:00 Metronidazole 100 ml @ 100 mls/hr Q8HR IV 12/30/24 06:00 12/30/24 15:12 Clopidogrel Bisulfate (Plavix) 75 mg DAILY PO 12/30/24 10:00 12/30/24 10:37 Carvedilol (Coreg Tablet) 12.5 mg Q12HR PO 12/29/24 23:27 12/30/24 10:39 Amlodipine Besylate (Norvasc Tablet) 10 mg DAILY PO 12/30/24 10:00 12/30/24 10:38 Hydralazine HCl (Apresoline Injection) 10 mg Q6HP PRN IV SBP>150 12/29/24 20:15 Aspirin 81 mg DAILY PO 12/30/24 10:00 12/30/24 10:37 Atorvastatin Calcium (Lipitor) 20 mg HS PO 12/29/24 23:27 12/29/24 23:34 Acetaminophen/ Hydrocodone Bitart (Foster 5/325MG Tab) 1 tab Q4HP PRN PO MODERATE PAIN (4-6 PAIN SCALE) 12/29/24 20:15 Ondansetron HCl (Zofran) 4 mg Q4HP PRN IV NAUSEA / VOMITING 12/29/24 20:15 Docusate Sodium (Colace Capsule) 100 mg BIDPRN PRN PO FOR CONSTIPATION 12/29/24 20:15 Acetaminophen (Tylenol Tablet) 650 mg Q6HP PRN PO PAIN SCALE 1-3 OR TEMP>100.4 12/29/24 20:15 Nitroglycerin (Ntrostat Sublingual) 0.4 mg Q5MINP PRN SL FOR CHEST PAIN 12/29/24 21:45 Morphine Sulfate 2 mg Q30M PRN IV FOR CHEST PAIN 12/29/24 21:45 Melatonin (Melatonin) 5 mg HS PO 12/30/24 02:00 12/30/24 02:23 Review of Systems Constitutional: No: Fever, Chills, Sweats, Weakness, Malaise, Other Eyes: No: Pain, Vision change, Conjunctivae inflammation, Eyelid inflammation, Other, Redness ENT: No: Ear pain, Ear discharge, Nose pain, Nose discharge, Nose congestion, Mouth pain, Mouth swelling, Throat pain, Throat swelling, Other Respiratory: No: Cough, Dry, Shortness of breath, SOB with exertion, Wheezing, Hemoptysis, Pleuritic Pain, Sputum, Wheezing, Other Cardiovascular: ; No: Chest Pain Orthopnea, Paroxysmal Noc. Dyspnea, Edema, Lt Headedness, Other positive: Palpitations, Gastrointestinal: No: Nausea, Vomiting, , Diarrhea, , Melena, Hematochezia, Other positive: Abdominal Pain, Constipation Genitourinary: No Dysuria, No Frequency, No Incontinence, No Hematuria, No Retention, No Other Musculoskeletal: neck pain; No: other, shoulder pain, arm pain, back pain, hand pain, leg pain, foot pain Skin: No: Rash, Lesions, Jaundice, Bruising, Other Neurological: Other (Dizziness, headache.); No: Weakness, Numbness, Incoordination, Change in speech, Confusion, Seizures Vital Signs Vital Signs Date Time Temp Pulse Resp B/P (MAP) Pulse Ox O2 Delivery O2 Flow Rate FiO2 12/30/24 14:42 58 12/30/24 13:15 104/78 12/30/24 12:00 12 97 12/30/24 08:05 Room Air* 0 21 12/30/24 08:05 97.1 97.1 Physical Exam GENERAL: Awake, alert, oriented. LUNGS: Clear. CARDIOVASCULAR: Heart sounds are good. ABDOMEN: Soft. Labs/Diagnostic Data Labs Test 12/30/24 06:59 12/30/24 03:01 12/29/24 16:23 Range/Units Troponin I High Sensitivity 652 *H </=34 ng/L White Blood Count 13.8 H 4.4-10.8 10^3/uL Red Blood Count 3.97 L 4.0-5.20 10^6/uL Hemoglobin 11.8 #L 12.2-16.2 g/dL Hematocrit 35.4 #L 36.0-46.0 % Mean Corpuscular Volume 89.1 80.0-100.0 fL Mean Corpuscular Hemoglobin 29.7 28.0-32.0 pg Mean Corpuscular Hemoglobin Concent 33.3 32.0-36.0 g/dL Red Cell Distribution Width 13.9 11.8-14.3 % Platelet Count 198 140-450 10^3/uL Mean Platelet Volume 9.0 6.9-10.8 fL Neutrophils (%) (Auto) 77.7 37.0-80.0 % Lymphocytes (%) (Auto) 16.0 10.0-50.0 % Monocytes (%) (Auto) 5.5 0.0-12.0 % Eosinophils (%) (Auto) 0.5 0.0-7.0 % Basophils (%) (Auto) 0.3 0.0-2.0 % Neutrophils # (Auto) 10.7 H 1.6-8.6 10 ^3/uL Lymphocytes # (Auto) 2.2 0.4-5.4 10 ^3/uL Monocytes # (Auto) 0.8 0-1.3 10 ^3/uL Eosinophils # (Auto) 0.1 0-0.8 10 ^3/uL Basophils # (Auto) 0 0-0.2 10 ^3/uL Nucleated Red Blood Cells 0.1 % Sodium Level 140 136-145 mmol/L Potassium Level 3.7 3.5-5.1 mmol/L Chloride Level 107 98-107 mmol/L Carbon Dioxide Level 24 20-31 mmol/L Anion Gap 9 5-15 Blood Urea Nitrogen 20 9-23 mg/dL Creatinine 0.78 0.550-1.02 mg/dL Glomerular Filtration Rate Calc 78 >90 mL/min BUN/Creatinine Ratio 25.6 H 10.0-20.0 Serum Glucose 147 H 74-106 mg/dL Calcium Level 9.5 8.7-10.4 mg/dL Total Bilirubin 0.5 0.2-1.0 mg/dL Aspartate Amino Transferase (AST) 21 13-40 U/L Alanine Aminotransferase (ALT) 20 7-40 U/L Alkaline Phosphatase 78 46-116 U/L Total Protein 5.6 L 5.7-8.2 g/dL Albumin 3.7 3.2-4.8 g/dL Hemoglobin A1c 6.0 H <5.7 % A1C Magnesium Level 1.9 1.6-2.6 mg/dL Thyroid Stimulating Hormone (TSH) 3.64 0.55-4.78 uIU/mL Assessment NSTEMI. Atrial fibrillation with episodes of RVR. Near-syncope. HX SVT. CAD. CABG. PCI stent x2. CVA. HTN. HLD. Stercoral colitis. Plan/Recommendation I agree with your ongoing assessment and care of plan. Patient has been seen by Jarred Demarco NP on my behalf, him and I discussed the plan with the patient. Continue aspirin, statin, and Plavix. Denies chest pain. Likely type 2 AL. Continue trending troponins. Follow up echo. Currently sinus rhythm, Continue on Coreg. Patient not on anticoagulation therapy for AFib. BP stable on current regimen continue trending. Additional plan as per the hospital course. Plan discussed with: Patient NYHA Physical activity limitations: NA Date of Service: Dec 30, 2024 Billing Provider: ULYSSES SANTOS MD Cardiology Common Codes: [id number] INP/OBS CARE (High), [id number] CARE 30-74 MIN ULYSSES SANTOS MD Dec 30, 2024 17:11
--- NOTE | 2024-12-30 23:00 | DVHSR ---
APPROVED REPORT EXAM: Two-dimensional and M-mode echocardiogram with Doppler and color Doppler. Blood Pressure: 122/57 mmHg INDICATION NSTEMI Surgery/Intervention CABG: RISK FACTORS Height: 5', Weight: 2" DIMENSIONS LVDd4.5 (3.8-5.7cm)LA (2D)4.0 (1.9-4.0cm)Aortic Root2.4 (2.0-3.7cm) LVDs3.8 (2.5-4.0cm)LA (MM) (1.9-4.0cm)Aortic Cusp Exc1.4 (1.5-2.0cm) EF (%) 45.0 (55-70%)Rt. Atrium4.0 (1.9-4.0cm)Asc. Aorta cm IVSd0.7 (0.7-1.1cm)RV (D) (1.8-2.4cm) PWd0.8 (0.7-1.1cm) Mitral Valve MitralMitral Stenosis E wave1.10m/sMV Mean GR.mmHg A wave1.00m/sMV Peak GR.mmHg E/A ratio1.12D MVAcm2 Aortic Valve Aortic ValveAortic Stenosis V10.60m/Susan Mean GR.6mmHg V21.80m/Susan Peak GR.13mmHg LVOT Diameter2.1 (1.8-2.4cm)Doppler AVA1.15cm2 Tricuspid Valve TR Velocity2.40m/s [id number] Conclusion MILD LVH AND MILD LV DIASTOLIC DYSFUNCTION LV EJECTION FRACTION IS 55% DYSKINESIS OF IVS SLIGHTLY DILATED RV RV STRAIN NORMAL VALVES NO EFFUSION
[2024-12-31] VITALS (7 sets, daily range): BP systolic 130–139; BP diastolic 54–78; PULSE 52–63; RESP 18–20; TEMP 97.9–98.4; O2SAT 96–99
--- NOTE | 2024-12-31 11:25 | DVHPN2 ---
Subjective The patient is seen and examined at bedside. No syncopal episode. Reviewed: Care Plan, H&P, Labs, Medications, Previous Orders, Radiology Eyes: No Pain, No Vision change, No Conjunctivae inflammation, No Eyelid inflammation, No Other, No Redness ENT: No Ear pain, No Ear discharge, No Nose pain, No Nose discharge, No Nose congestion, No Mouth pain, No Mouth swelling, No Throat pain, No Throat swelling, No Other Cardiovascular: No Chest Pain; Palpitations; No Orthopnea, No Paroxysmal Noc. Dyspnea, No Edema, No Lt Headedness, No Other Respiratory: No Cough, No Dry, No Shortness of breath, No SOB with excertion, No Wheezing, No Hemoptysis, No Pleuritic Pain, No Sputum, No Other Gastrointestinal: Nausea, Vomiting, Abdominal Pain; No Diarrhea, No Constipation, No Melena, No Hematochezia, No Other Genitourinary: No Dysuria, No Frequency, No Incontinence, No Hematuria, No Retention, No Other Musculoskeletal: No other, No neck pain, No shoulder pain, No arm pain, No back pain, No hand pain, No leg pain, No foot pain Skin: No Rash, No Lesions, No Jaundice, No Bruising, No Other Objective Vitals Vital Signs Date Time Temp Pulse Resp B/P (MAP) Pulse Ox O2 Delivery O2 Flow Rate FiO2 12/31/24 09:10 138/80 12/31/24 09:08 68 12/31/24 08:50 98.1 20 99 98.1 12/31/24 08:10 Room Air* 0 21 Intake/Output Intake and Output 12/31/24 07:00 Intake Total 850 ml Balance 850 ml Intake Oral 400 ml IV Total 450 ml # Bowel Movements 1 General Appearance: Alert, Oriented X3, Cooperative, No acute distress HEENT: Atraumatic, PERRLA, EOMI, Mucous membr. moist/pink Neck: Supple Lungs: Clear to auscultation, Normal air movement Cardiovascular: Regular rate, Normal S1, Normal S2, No murmurs, Gallops, Rubs Abdomen: Normal bowel sounds, Soft, No tenderness, No hepatospenomegaly Neuro: Cranial nerves 3-12 NL Psych/Mental Status: Mental status NL Medications Current Medications Medications Dose Ordered Sig/Waldemar Route Start Time Stop Time Status Last Admin Dose Admin Ceftriaxone Sodium 50 ml @ 100 mls/hr Q24H IV 12/30/24 21:00 12/30/24 21:40 100 MLS/HR Metronidazole 100 ml @ 100 mls/hr Q8HR IV 12/30/24 06:00 12/31/24 05:52 100 MLS/HR Clopidogrel Bisulfate 75 mg DAILY PO 12/30/24 10:00 12/31/24 09:09 75 MG Carvedilol 12.5 mg Q12HR PO 12/29/24 23:27 12/31/24 09:08 12.5 MG Amlodipine Besylate 10 mg DAILY PO 12/30/24 10:00 12/31/24 09:10 10 MG Hydralazine HCl 10 mg Q6HP PRN IV 12/29/24 20:15 Aspirin 81 mg DAILY PO 12/30/24 10:00 12/31/24 09:05 81 MG Atorvastatin Calcium 20 mg HS PO 12/29/24 23:27 12/30/24 21:05 20 MG Acetaminophen/ Hydrocodone Bitart 1 tab Q4HP PRN PO 12/29/24 20:15 Ondansetron HCl 4 mg Q4HP PRN IV 12/29/24 20:15 Docusate Sodium 100 mg BIDPRN PRN PO 12/29/24 20:15 Acetaminophen 650 mg Q6HP PRN PO 12/29/24 20:15 Nitroglycerin 0.4 mg Q5MINP PRN SL 12/29/24 21:45 Morphine Sulfate 2 mg Q30M PRN IV 12/29/24 21:45 Melatonin 5 mg HS PO 12/30/24 02:00 12/30/24 21:05 5 MG Laboratory Results Laboratory Tests 12/30/24 03:01 Assessment/Plan Assessment/Plan Assessment/Plan Near syncope Hypokalemia SVT (supraventricular tachycardia) Generalized abdominal pain Stercoral colitis Hyperglycemia Constipation Slow transit constipation Non-STEMI (non-ST elevated myocardial infarction) Continuing current management. Waiting for cane pusher to see the patient. Replace electrolytes as needed. Continuing antibiotic. This medical document was created using an electronic medical record system with [employer] computerized dictation system. Although this document has been carefully reviewed, there may still be some phonetic and typographical errors. These areas are purely typographical due to imperfections of the software programs, and do not reflect any compromise in the patient's medical care. My Orders Orders - CHIQUI SALINAS MD Procedure Category Date Status Time Mrsa Screen NAKIA 12/31/24 In Process 06:00 CHIQUI SALINAS MD Dec 31, 2024 11:25
--- NOTE | 2024-12-31 20:55 | DVHDS2 ---
Discharge Summary Date of Admission Dec 29, 2024 at 21:36 Date of Discharge: Dec 31, 2024 Admitting Diagnosis Near syncope Hypokalemia SVT (supraventricular tachycardia) Generalized abdominal pain Stercoral colitis Hyperglycemia Constipation Slow transit constipation Non-STEMI (non-ST elevated myocardial infarction) Labs/Diagnostic Data: Laboratory Results Test 12/30/24 06:59 12/30/24 03:01 12/29/24 16:23 Troponin I High Sensitivity 652 ng/L (</=34) White Blood Count 13.8 10^3/uL (4.4-10.8) Red Blood Count 3.97 10^6/uL (4.0-5.20) Hemoglobin 11.8 g/dL (12.2-16.2) Hematocrit 35.4 % (36.0-46.0) Mean Corpuscular Volume 89.1 fL (80.0-100.0) Mean Corpuscular Hemoglobin 29.7 pg (28.0-32.0) Mean Corpuscular Hemoglobin Concent 33.3 g/dL (32.0-36.0) Red Cell Distribution Width 13.9 % (11.8-14.3) Platelet Count 198 10^3/uL (140-450) Mean Platelet Volume 9.0 fL (6.9-10.8) Neutrophils (%) (Auto) 77.7 % (37.0-80.0) Lymphocytes (%) (Auto) 16.0 % (10.0-50.0) Monocytes (%) (Auto) 5.5 % (0.0-12.0) Eosinophils (%) (Auto) 0.5 % (0.0-7.0) Basophils (%) (Auto) 0.3 % (0.0-2.0) Neutrophils # (Auto) 10.7 10 ^3/uL (1.6-8.6) Lymphocytes # (Auto) 2.2 10 ^3/uL (0.4-5.4) Monocytes # (Auto) 0.8 10 ^3/uL (0-1.3) Eosinophils # (Auto) 0.1 10 ^3/uL (0-0.8) Basophils # (Auto) 0 10 ^3/uL (0-0.2) Nucleated Red Blood Cells 0.1 % Sodium Level 140 mmol/L (136-145) Potassium Level 3.7 mmol/L (3.5-5.1) Chloride Level 107 mmol/L (98-107) Carbon Dioxide Level 24 mmol/L (20-31) Anion Gap 9 (5-15) Blood Urea Nitrogen 20 mg/dL (9-23) Creatinine 0.78 mg/dL (0.550-1.02) Glomerular Filtration Rate Calc 78 mL/min (>90) BUN/Creatinine Ratio 25.6 (10.0-20.0) Serum Glucose 147 mg/dL (74-106) Calcium Level 9.5 mg/dL (8.7-10.4) Total Bilirubin 0.5 mg/dL (0.2-1.0) Aspartate Amino Transferase (AST) 21 U/L (13-40) Alanine Aminotransferase (ALT) 20 U/L (7-40) Alkaline Phosphatase 78 U/L (46-116) Total Protein 5.6 g/dL (5.7-8.2) Albumin 3.7 g/dL (3.2-4.8) Hemoglobin A1c 6.0 % A1C (<5.7) Magnesium Level 1.9 mg/dL (1.6-2.6) Thyroid Stimulating Hormone (TSH) 3.64 uIU/mL (0.55-4.78) Free Thyroxine (T4) Calculated 1.37 ng/dL (0.89-1.76) Other Laboratory Tests 12/30/24 03:01 Brief Hx & Hospital Course: This is a 79 years old female with past medical history of [place], SVT, atrial fibrillation, coronary artery disease, CVA came to the emergency department because of heart palpitation. The patient apparently had palpitation and then pass. The daughter with the eye rolling back, but she is conscious. No none history of seizure. She also complained of abdominal pain with nausea or vomiting. The patient is hospitalized two weeks prior to this admission because of septic shock. This time the patient was found to have atrial in SVT which converted in the ER. CT of the abdomen/pelvis revealing moderate rectal fecal impaction and findings suggestive of stercoral colitis with moderate associated presacral edema. Patient was started on IV antibiotic regimen Rocephin and Flagyl. She also found to have Non STEMI and was given aspirin 325 mg daily. [place] [facility] see the patient. Recommend echo. Echocardiogram shows an EF of 55%. Mild LVH, mild LV diastolic dysfunction, slightly dilated RV. [place] [facility] recommend aspirin, Plavix and statin. The patient remained weak requiring more hospitalization. The patient belong to [facility] and they request for her to come back to their facility. The patient is stable for transfer today. So I am going to transfer her to [facility]. If the patient has recurrent syncope with eye roll back, she may need neurology evaluation at [facility]. Follow up with primary care 1-2 fresh food manager per schedule. Follow up with fresh food manager per schedule. Activity tolerate. Diet: low salt low cholesterol diet Physical exam: HEENT: Normocephalic atraumatic pupils equal react to light and accommodation. Extraocular muscles intact, conjunctiva pink, oropharynx moist, no thrush, no exudate. Lymphatic: No lymphadenopathy Cardiovascular exam: S1, S2 was heard. No murmurs, rubs, gallops Lung: Clear on auscultation bilaterally, no wheeze, rale, rhonchi. GI: Abdominal soft, nondistended, nontenderness, positive bowel sounds. Extremity: No crepitus, cyanosis, edema. Pedal pulses present bilateral. Full range of motion. Skin: Normal turgor, no rash. Psych: Alert, oriented x3. Neurology: No focal deficits, cranial nerve II to XII grossly intact. This medical document was created using an electronic medical record system with [employer] direct computerized dictation system. Although this document has been carefully reviewed, there may still be some phonetic and typographical errors. These areas are purely typographical due to imperfections of the software programs, and do not reflect any compromise in the patient's medical care. Condition at Discharge: Stable Final Diagnosis/Problems List Atrial fibrilation. Near syncope Hypokalemia SVT (supraventricular tachycardia) Generalized abdominal pain Stercoral colitis Hyperglycemia Constipation Slow transit constipation Non-STEMI (non-ST elevated myocardial infarction) Discharge Disposition: Acute Care Facility Discharge Instruct/Medications Diet: Cardiac 2g Na,low cholest Activity: No Restrictions, As Tolerated Follow Up/Referral: pcp 1-2 weeks Discharge Statement: "Patient was advised to return to the ER or call 911 if any headaches, dizziness, shortness of breath, chest pain, abdominal pain, bleeding, fevers, or worsening of medical condition. Patient was counseled about treatment plan, medications, possible side effects, patientverbalized understanding. All questions were answered to the best of my ability. This discharge took greater then 30 minutes in planning, reviewing documentation, counseling the patient, and discussing with other team members." ASSESSMENT ASSESSMENT Assessment afib Date of Service: Dec 31, 2024 Billing Provider: CHIQUI SALINAS MD Common Visit Codes: 45278-FFA/OBS DISCH DAY >30min CHIQUI SALINAS MD Dec 31, 2024 20:55
--- NOTE | 2024-12-31 21:57 | DVHPN2 ---
Progress Note - Dictate Date Seen: Dec 31, 2024 Medical Necessity Reason Pt with a Central, PICC or Fol: No Subjective Patient was seen and evaluated in follow up. No overnight events. Patient denies any complaints. Echocardiogram shows an EF of 55%. Mild LVH, mild LV diastolic dysfunction, slightly dilated RV. Telemetry reviewed. vital signs Vital Sign Date Time Temp Pulse Resp B/P (MAP) Pulse Ox O2 Delivery O2 Flow Rate FiO2 12/31/24 20:00 Room Air* 0 21 12/31/24 17:00 98.4 63 18 139/54 (82) 96 98.4 Total Intake and Output 12/30/24 12/30/24 12/31/24 15:00 23:00 07:00 Intake Total 100 ml 150 ml 600 ml Balance 100 ml 150 ml 600 ml objective GENERAL: Awake, alert, oriented. LUNGS: Clear. CARDIOVASCULAR: Heart sounds are good. ABDOMEN: Soft. laboratory and microbiology Laboratory Tests 12/30/24 03:01 Test 12/30/24 03:01 Range/Units Serum Glucose 147 H 74-106 mg/dL Problem List NSTEMI. Atrial fibrillation with episodes of RVR. Near-syncope. HX SVT. CAD. CABG. PCI stent x2. CVA. HTN. HLD. Stercoral colitis. Assessment/Plan Continued all current supportive medical care. Continue aspirin, statin, and Plavix. Continue on Coreg. Additional plan as per the hospital course. Plan discussed with: Patient ULYSSES SANTOS MD Dec 31, 2024 21:57
== END 2024-12-31 21:17 | disposition short-term general hospital (02) | DRG 281 ==
LOC: ER 15:55 → EDBD 15:55 → TELE 21:36 → TELE-WESTW 21:37
PROVIDERS: ADMIT Nurse Practitioner Family; ATTEND Internal Medicine
DX: I21.4 Non-ST elevation (NSTEMI) myocardial infarction (principal); I47.10 Supraventricular tachycardia, unspecified; I48.91 Unspecified atrial fibrillation; K52.89 Other specified noninfective gastroenteritis and colitis; E87.6 Hypokalemia; R73.9 Hyperglycemia, unspecified; I25.10 Atherosclerotic heart disease of native coronary artery without angina pectoris; E78.5 Hyperlipidemia, unspecified; K59.01 Slow transit constipation; Z95.1 Presence of aortocoronary bypass graft; Z79.82 Long term (current) use of aspirin; Z79.899 Other long term (current) drug therapy; Z95.5 Presence of coronary angioplasty implant and graft; Z86.73 Personal history of transient ischemic attack (TIA), and cerebral infarction without residual deficits
CPT/HCPCS: 36415; 71045; 74176; 80053; 83036; 83735; 84439; 84443; 84484; 85025; 87081; 93005; 93306; 99291; G0378; J3490